=== PATIENT | female | born 1975 | race Caucasian/White ===

== ENCOUNTER 2016-03-01 03:11 | Emergency (ER) | payer OTHER ==
[~2016-03-01] VITALS: Ht 167.6 cm; Wt 82.6 kg
[~2016-03-01 03:11] MED LIST: PERCOCET 5/31 TABLET PO
[2016-03-01] MEDS ORDERED: PERCOCET 5/31 TABLET PO (04:27)
[2016-03-01] MEDS ORDERED: BACTRIM,SEPT1 TABLET PO (04:27)
[2016-03-01 04:46] LABS: EOSINOPHIL (%) 1.6 % (0-5); EOSINOPHIL COUNT 0.2 K/uL (0-0.3); HEMATOCRIT 38.7 % (36.0-46.0); IMMATURE GRANULOCYTE (%) 0.4 % (0.0-0.7); IMMATURE GRANULOCYTE COUNT 0.5 K/uL; LYMPHOCYTE COUNT 3.5 K/uL (1.0-2.8); MCH 29.4 PG (29.0-34.0); MCHC 34.4 G/DL (30.0-36.0); MCV 85.4 FL (83-99); MEAN PLAT.VOLUME 9.3 uM^3 (9.5-12.4); MONOCYTE (%) 7.1 % (3-12); MONOCYTE COUNT 0.9 K/uL (0-0.8); NEUTROPHIL (%) 63.8 % (45-76); NEUTROPHIL COUNT 8.2 K/uL (1.8-6.4); PLATELET COUNT 316 K/uL (156-360); RBC DIS.WIDTH-SD 39.7 % (39-53); RED BLOOD COUNT 4.53 M/uL (3.80-5.20); WHITE BLOOD COUNT 12.9 K/uL (4.1-10.2)
[2016-03-01 05:14] LABS: CHLORIDE 106 mEq/L (99-109); POTASSIUM 3.4 mEq/L (3.7-5.4); SODIUM 136 mEq/L (136-147)
[2016-03-01 05:15] LABS: GLUCOSE 100 mg/dL (70-99)
[2016-03-01 05:17] LABS: ANION GAP 9 MEQ/L (2-14)
[2016-03-01 05:19] LABS: GFR ESTIMATE (CALCULATED) > 59 mL/min/
[2016-03-01 05:20] LABS: UREA NITROGEN (BUN) 8 mg/dL (9-23)
[2016-03-01 05:48] VITALS: BP 111/76
== END 2016-03-01 05:49 | disposition home or self-care (01) ==
LOC: EME 03:11
PROVIDERS: Emergency Medicine
DX: L02.415 Cutaneous abscess of right lower limb (principal); L03.115 Cellulitis of right lower limb; D72.829 Elevated white blood cell count, unspecified; Z88.1 Allergy status to other antibiotic agents; Z88.5 Allergy status to narcotic agent; Z90.49 Acquired absence of other specified parts of digestive tract; Z90.710 Acquired absence of both cervix and uterus
CPT/HCPCS: 73502; 80048; 83605; 85025; 87040; 99281; 99284; J1885

== ENCOUNTER 2016-08-31 21:54 | Emergency (ER) | payer OTHER ==
[~2016-08-31] VITALS: Ht 167.6 cm; Wt 84.3 kg
[~2016-08-31 21:54] MED LIST changes: +BACTRIM,SEPT1 TABLET PO
[2016-08-31 22:32] VITALS: BP 130/75
[2016-08-31 23:00] LABS: HEMATOCRIT 40.4 % (36.0-46.0); MCH 28.8 PG (29.0-34.0); MCHC 33.4 G/DL (30.0-36.0); MCV 86.3 FL (83-99); MEAN PLAT.VOLUME 9.9 uM^3 (9.5-12.4); PLATELET COUNT 306 K/uL (156-360); RBC DIS.WIDTH-CV 12.8 % (11.8-14.6); RED BLOOD COUNT 4.68 M/uL (3.80-5.20)
[2016-08-31 23:15] LABS: CHLORIDE 109 mEq/L (99-109); POTASSIUM 3.8 mEq/L (3.7-5.4); SODIUM 143 mEq/L (136-147)
[2016-08-31 23:17] LABS: GLUCOSE 110 mg/dL (70-99)
[2016-08-31 23:18] LABS: ANION GAP 13 MEQ/L (2-14)
[2016-08-31 23:21] LABS: GFR ESTIMATE (CALCULATED) > 59 mL/min/; UREA NITROGEN (BUN) 10 mg/dL (9-23)
== END 2016-09-01 00:11 | disposition left against medical advice (07) ==
LOC: EXP 21:54 → EME 21:54 → EXP 09-01 00:11
PROVIDERS: Emergency Medicine
DX: M79.662 Pain in left lower leg (principal); R20.0 Anesthesia of skin
CPT/HCPCS: 80048; 83605; 85027; 87040; 93971; 99281; 99282